=== PATIENT | female | born 1960 ===

== ENCOUNTER 2024-12-13 12:14 | Emergency (ER) | payer MEDICAID ==
[~2024-12-13] VITALS: Ht 167.6 cm; Wt 60.0 kg
[2024-12-13 12:39] VITALS: TEMP 37.1; O2SAT 100
[2024-12-13 13:07] LABS: BASOPHILS % 0.7 % (0.0-2.0); EOSINOPHILS % 3.2 % (0.0-5.0); HEMATOCRIT. 32.3 % (36.0-48.0); HEMOGLOBIN. 10.4 g/dL (12.0-16.0); LYMPHOCYTES % 13.5 % (20.0-50.0); MEAN PLATELET VOLUME 7.6 fl (7.4-10.4); MONOCYTES % 8.7 % (2.0-8.0); NEUTROPHILS % 73.9 % (40.0-76.0); PLATELET 341 x1000/uL (130-400); RED BLOOD CELL COUNT 3.74 mill/uL (4.2-5.4); RED CELL DISTRIBUTION WIDTH 14.8 % (11.6-14.6)
[2024-12-13 13:20] LABS: CREATININE 0.9 mg/dL (0.6-1.0); UREA NITROGEN BLOOD 21 mg/dL (9-23)
[2024-12-13] MEDS ORDERED: CEPH500C2 MT (16:04)
[2024-12-13] MEDS ORDERED: IBUP-2028 MT (16:04)
[2024-12-13] MEDS ORDERED: SULF1TAB48 MT (16:04)
[2024-12-13] MEDS: IBUPROFEN 400MG TABLET PO ONE (16:35)
[2024-12-13] MEDS: SULFAMETHOXAZOLE/TRIMETHOPRIM 800/160MG TABLET PO STA (16:35)
[2024-12-13] MEDS: CEPHALEXIN 250MG CAPSULE PO ONE (16:36)
[2024-12-13 16:37] VITALS: BP 146/63; PULSE 54; RESP 12; O2SAT 99
== END 2024-12-13 17:15 | disposition home or self-care (01) ==
LOC: ER 12:14
DX: L03.115 Cellulitis of right lower limb (principal); Z79.899 Other long term (current) drug therapy; Z90.710 Acquired absence of both cervix and uterus; Z87.891 Personal history of nicotine dependence
CPT/HCPCS: 36415; 73630; 80048; 82962; 85025; 99284